=== PATIENT | female | born 1940 | race Caucasian/White ===

== ENCOUNTER 2023-03-12 13:10 | Observation (INO) | payer MEDICARE ==
[~2023-03-12] VITALS: Ht 167.6 cm; Wt 78.7 kg
[2023-03-12 14:13] LABS: BASO % 0.3 % (0.0-1.0); EOS % 0.2 % (0.0-3.0); HEMATOCRIT 43.7 % (36.0-47.0); LYMPH # 0.7 10^3/uL (1.5-5.0); LYMPH % 5.7 % (24.0-44.0); MEAN CORPUSCULAR VOLUME 99.8 fl (80.0-96.0); MONO # 0.6 10^3/uL (0.0-0.8); MONO % 4.9 % (2.0-8.0); NEUTROPHILS # 11.6 10^3/uL (1.5-8.5); NEUTROPHILS % 88.4 % (36.0-66.0); PLATELET COUNT, AUTOMATED 211 10^3/uL (150-450); RED BLOOD COUNT 4.38 10^6/uL (4.00-5.40); WHITE BLOOD COUNT 13.1 10^3/uL (4.0-10.0)
[2023-03-12 14:40] LABS: CREATININE FOR GFR 1.16 MG/DL (0.55-1.30); GLOMERULAR FILTRATION RATE 47.6 (>32)
[2023-03-12] MEDS ORDERED: ISOVUE-370 76% 100ML VIAL As Ordered ONE (15:34)
[2023-03-12] MEDS ORDERED: POTA-151 PO (18:15)
[2023-03-12] MEDS ORDERED: TYLE650T38 PO (18:15)
[2023-03-12] MEDS ORDERED: ELIQ5TAB PO (18:15)
[2023-03-12] MEDS ORDERED: FURO20TA2 PO (18:15)
[2023-03-12] MEDS ORDERED: VITA200048 PO (18:15)
[2023-03-12] MEDS ORDERED: HOME MED LIST COMPLETE! XX SCH (18:15)
[2023-03-12] MEDS ORDERED: ATOR1TAB21 PO (18:15)
[2023-03-12] MEDS ORDERED: LISI20TA33 PO (18:15)
[2023-03-12] MEDS ORDERED: ACETAMINOPHEN 650MG ER TAB (TYLENOL ARTHRITIS) PO PRN (18:35)
[2023-03-12 19:58] LABS: RSV AMPLIFICATION NEGATIVE (NEGATIVE)
[2023-03-12 21:00] VITALS: BP 166/79; TEMP 98.9; O2SAT 96
[2023-03-12] MEDS: APIXABAN 5 MG TAB (ELIQUIS) PO SCH (21:12)
[2023-03-12 23:59] VITALS: BP_SYST 129; BP_SYST 147; BP_SYST 171; BP_DIAS 103; BP_DIAS 63; BP_DIAS 81; TEMP 96.7; O2SAT 98
[2023-03-13 04:00] VITALS: BP 151/72; TEMP 98.4; O2SAT 94
[2023-03-13 06:38] LABS: HEMATOCRIT 37.9 % (36.0-47.0); HEMOGLOBIN 12.1 g/dl (12.0-15.5); MEAN CORPUSCULAR HEMOGLOBIN 30.8 pg (27.0-33.0); MEAN CORPUSCULAR HGB CONC 31.9 g/dl (32.0-36.5); MEAN CORPUSCULAR VOLUME 96.4 fl (80.0-96.0); PLATELET COUNT, AUTOMATED 172 10^3/uL (150-450); RED BLOOD COUNT 3.93 10^6/uL (4.00-5.40); WHITE BLOOD COUNT 11.5 10^3/uL (4.0-10.0)
[2023-03-13 06:50] LABS: CALCIUM LEVEL 9.5 MG/DL (8.3-10.6); CREATININE FOR GFR 1.07 MG/DL (0.55-1.30); GLOMERULAR FILTRATION RATE 52.3 (>32); MAGNESIUM LEVEL 1.8 MG/DL (1.8-2.4); POTASSIUM SERUM 4.1 MMOL/L (3.5-5.1)
[2023-03-13] MEDS ORDERED: POTASSIUM CHLORIDE 10MEQ SR TABLET PO SCH (08:00)
[2023-03-13] MEDS ORDERED: ATORVASTATIN 20 MG TAB PO SCH (09:00)
[2023-03-13] MEDS ORDERED: FUROSEMIDE 20 MG TAB PO SCH ×2 (09:00)
[2023-03-13] MEDS: APIXABAN 5 MG TAB (ELIQUIS) PO SCH (09:32)
[2023-03-13 09:34] VITALS: BP 113/53
[2023-03-13] MEDS ORDERED: LISI10TA22 PO (11:54)
[2023-03-13] MEDS ORDERED: FURO20TA2 PO (11:54)
[2023-03-13] MEDS ORDERED: POTA-151 PO (12:05)
[2023-03-13] MEDS ORDERED: LISI30TA4 PO (12:05)
== END 2023-03-13 15:35 | disposition home or self-care (01) ==
LOC: M ED 13:10 → M ED INP 13:11 → M PCU 20:55
PROVIDERS: ADMIT Internal Medicine; ATTEND Internal Medicine
DX: R55 Syncope and collapse (principal); R32 Unspecified urinary incontinence; I48.19 Other persistent atrial fibrillation; I11.9 Hypertensive heart disease without heart failure; I08.9 Rheumatic multiple valve disease, unspecified; I65.21 Occlusion and stenosis of right carotid artery; Z95.0 Presence of cardiac pacemaker; Z98.890 Other specified postprocedural states; Z88.2 Allergy status to sulfonamides; Z88.5 Allergy status to narcotic agent
CPT/HCPCS: 36415; 70450; 70496; 70498; 80048; 81001; 83735; 85025; 85027; 87631; 93005; 93041; 94760; 99285; G0378; Q9967